=== PATIENT | female | born 1990 | race Two or more races ===

== ENCOUNTER 2019-09-28 12:04 | Outpatient (CLI) | payer OTHER ==
[~2019-09-28] VITALS: Ht 170.2 cm; Wt 113.4 kg
[2019-09-28] MEDS ORDERED: FLONASE16 GM NASAL (12:26)
[2019-09-28] MEDS ORDERED: PEPCID AC20 MG PO (12:27)
[2019-09-28] MEDS ORDERED: PRILOSEC OTC20 MG PO (12:27)
== END 2019-09-28 12:55 | disposition home or self-care (01) ==
LOC: OFIC 805 12:04
PROVIDERS: ATTEND Otolaryngology
DX: Q38.6 Other congenital malformations of mouth (principal); J35.2 Hypertrophy of adenoids; J30.89 Other allergic rhinitis; J34.3 Hypertrophy of nasal turbinates; G47.33 Obstructive sleep apnea (adult) (pediatric); J35.1 Hypertrophy of tonsils; H61.23 Impacted cerumen, bilateral; E66.8 Other obesity; J45.998 Other asthma